=== PATIENT | male | born 1985 | race Caucasian/White ===

== ENCOUNTER 2019-03-29 12:40 | Emergency (ER) | payer SELFPAY ==
[~2019-03-29] VITALS: Ht 190.5 cm; Wt 122.3 kg
[~2019-03-29 12:40] MED LIST: HYDR-3583 PO
--- NOTE | 2019-03-29 13:06 | ED Cough/URI ---
General Chief Complaint: Cough/Cold/Flu Symptoms Stated Complaint: COUGH Nursing Triage Note: Patient reports cough for 3 weeks, right upper back pain with coughing, deep breathing, and moving since yesterday. Sepsis Screen: No Definite Risk Source: patient History of Present Illness Date Seen by Provider: Mar 29, 2019 Time Seen by Provider: 13:04 Initial Comments 33 yo male presenting with cough for over 3 weeks. He now is having pain in upper back with coughing, worse on right side. He has pain with deep breaths and with moving worse since yesterday. Subjective fever and chills. Woke up with sweats this am. He has had ill exposure with several of his children and family members. He smokes over a pack of cigarettes a day. Allergies and Home Medications Allergies Coded Allergies: Penicillins (Verified Allergy, Unknown, hives, 03/29/19) amoxicillin (Verified Allergy, Unknown, hives, 03/29/19) azithromycin (Verified Allergy, Unknown, hives, 03/29/19) cephalexin (Unverified Allergy, Unknown, 03/29/19) erythromycin base (Unverified Allergy, Unknown, 03/29/19) Home Medications Doxycycline Hyclate 100 Mg Tablet, 100 MG PO BID Prescribed by: MARINA RANGEL on 03/29/19 1324 Hydrocodone Bit/Acetaminophen 1 Tab Tab, 1 EA PO Q 4 - 6 HR PRN Prescribed by: LYUDMILA VENEGAS MD on 09/27/09 1433 Prednisone 20 Mg Tab, 40 MG PO DAILY Prescribed by: MARINA RANGEL on 03/29/19 1324 Patient Home Medication List Home Medication List Reviewed: Yes Review of Systems Review of Systems Constitutional: see HPI, chills, fever (subjective) EENTM: nose congestion Respiratory: see HPI; No hemoptysis; short of breath; No stridor Cardiovascular: see HPI Gastrointestinal: no symptoms reported Genitourinary: no symptoms reported Musculoskeletal: see HPI Skin: no symptoms reported Psychiatric/Neurological: Headache Past Yeflsiz-Phqhlb-[id number] Hx Past Med/Social Hx: Reviewed Nursing Past Med/Soc Hx Patient Social History Alcohol Use: Denies Use Recreational Drug Use: Yes Drug of Choice: marijuana Smoking Status: Current Everyday Smoker Type Used: Cigarettes 2nd Hand Smoke Exposure: No Recent Foreign Travel: No Contact w/Someone Who Travel: No Recent Infectious Disease Expo: No Recent Hopitalizations: No Physical Abuse: No Sexual Abuse: No Mistreated: No Fear: No Seasonal Allergies Seasonal Allergies: No Past Medical History Surgeries: No Respiratory: No Cardiac: No Neurological: No Genitourinary: No Gastrointestinal: No Musculoskeletal: No Endocrine: No HEENT: No Cancer: No Psychosocial: No Integumentary: No Physical Exam Vital Signs - First Documented 03/29/19 03/29/19 12:43 12:54 Temp 37.1 Pulse 98 Resp 18 B/P (MAP) 167/95 (119) Pulse Ox 97 O2 Delivery Room Air Capillary Refill : Less Than 3 Seconds Height: '" Weight: lbs. oz. kg; 33.00 BMI Method: General Appearance: mild distress HEENT: PERRL/EOMI, TMs normal, pharyngeal erythema; No tonsillar exudate Neck: non-tender, full range of motion, supple, normal inspection Respiratory: no respiratory distress, no accessory muscle use, decreased breath sounds, other (tender to palpate chest wall) Cardiovascular: normal peripheral pulses, regular rate, rhythm Extremities: normal range of motion, normal capillary refill Neurologic/Psychiatric: alert, oriented x 3 Skin: normal color, warm/dry Progress/Results/Core Measures Suspected Sepsis Recent Fever Within 48 Hours: No Infection Criteria Present: None New/Unexplained Altered Menta: No Sepsis Screen: No Definite Risk SIRS Temperature: Pulse: 98 Respiratory Rate: 18 Blood Pressure 167 /95 Mean: 119 Results/Orders My Orders Orders - MARINA RANGEL MD Chest Pa/Lat (2 View) (03/29/19 12:51) Vital Signs/I&O 03/29/19 03/29/19 12:43 12:54 Temp 37.1 Pulse 98 Resp 18 B/P (MAP) 167/95 (119) Pulse Ox 97 O2 Delivery Room Air Room Air Capillary Refill : Less Than 3 Seconds Blood Pressure Mean: 119 Progress Note #1: Progress Note CXR ordered to evaluate his lungs Progress Note #2: Progress Note On my review of his CXR he has increased lung markings on the right side in middle lobe. With him being a smoker and having productive cough with subjective fever and pain in chest will treat with a course of antibiotics and a steroid to help with inflammation of airways and chest wall. Counseled to quit smoking. Encouraged to push fluids and rest. Diagnostic Imaging Diagonstic Imaging: Xray Plain Films/CT/US/NM/MRI: chest Comments NAME: ARIAN RAMIREZ [facility] REC#: [id number] PT STATUS: REG ER : 1985 PHYSICIAN: MARINA RANGEL MD ADMIT DATE: 03/29/19/ER FS Draft Date of Exam:03/29/19 CHEST PA/LAT (2 VIEW) INDICATION: Cough. FINDINGS: PA and lateral chest. There is consolidated infiltrate posteriorly in the right mid lung. This is likely in the superior segment of the right lower lobe. There is pleural thickening noted as well. Left lung is clear. Heart is not enlarged. No pneumothorax or pleural effusion. No bony abnormalities. IMPRESSION: Findings are consistent with consolidated pneumonia in right mid lung. Dictated on workstation # [id number] Dict: 03/29/19 1318 Trans: 03/29/19 1335 [id number] Interpreted by: MICHAEL RAO MD Electronically signed by: Departure Impression Primary Impression: Right middle lobe pneumonia Qualified Codes: J18.1 - Lobar pneumonia, unspecified organism Additional Impressions: Tobacco abuse Upper respiratory infection with cough and congestion Disposition: HOME, SELF-CARE Condition: Stable Departure-Patient Inst. Decision time for Depature: 13:24 Referrals: NO,LOCAL PHYSICIAN (PCP) Primary Care Physician [facility] Patient Instructions: Cough, Adult (DC), SMOKING CESSATION, Bacterial Upper Respiratory Infection, Adult (DC) Add. Discharge Instructions: Drink plenty of fluids and stay well hydrated. Use Mucinex to help loosen your cough and congestion. Take the full course of antibiotics. The steroid will help with cough and congestion as well as chest wall pain. Quitting smoking will help with your breathing and coughing as well. All discharge instructions reviewed with patient and/or family. Voiced understanding. Scripts Prednisone (Prednisone) 20 Mg Tab 40 MG PO DAILY for cough/chest wall pain for 5 Days, #10 TAB 0 Refills Prov: MARINA RANGEL MD 03/29/19 Doxycycline Hyclate (Doxycycline Hyclate) 100 Mg Tablet 100 MG PO BID for 10 Days, #20 TAB 0 Refills Prov: MARINA RANGEL MD 03/29/19 Work/School Note: Work Release Form Date Seen in the Emergency Department: Mar 29, 2019 Return to Work: Mar 30, 2019 Restrictions: Return-No Fever (24hrs) MARINA RANGEL MD Mar 29, 2019 13:06
[2019-03-29] MEDS ORDERED: DOXY100T2 PO (13:24)
[2019-03-29] MEDS ORDERED: PRD20T PO (13:24)
--- NOTE | 2019-03-29 13:36 | Diagnostic Imaging Report ---
INDICATION: Cough. FINDINGS: PA and lateral chest. There is consolidated infiltrate posteriorly in the right mid lung. This is likely in the superior segment of the right lower lobe. There is pleural thickening noted as well. Left lung is clear. Heart is not enlarged. No pneumothorax or pleural effusion. No bony abnormalities. IMPRESSION: Findings are consistent with consolidated pneumonia in right mid lung. Dictated by: Dictated on workstation # [id number]
[2019-03-29 13:39] VITALS: BP 167/95
== END 2019-03-29 13:35 | disposition home or self-care (01) ==
LOC: EDUNIT# 12:40 → ER FS 12:41
DX: J18.9 Pneumonia, unspecified organism (principal); J06.9 Acute upper respiratory infection, unspecified; F17.210 Nicotine dependence, cigarettes, uncomplicated; Z88.0 Allergy status to penicillin; Z88.1 Allergy status to other antibiotic agents
CPT/HCPCS: 71046